=== PATIENT | male | born 1985 | race Caucasian/White ===

== ENCOUNTER 2019-02-04 07:52 | Observation (INO) | payer OTHER, SELFPAY ==
--- OUTSIDE RECORDS SUMMARY | 2019-02-04 08:06 | XMS REPORT ---
:1985 Author Organization eClinicalWorks Care Team Providers Name Role Phone Cory Webb Provider Role Unavailable Allergies, Adverse Reactions, Alerts Substance Reaction Event Type N.K.D.A. Info Not Available Non Drug Allergy Problems Problem Type Condition Code Onset Dates Condition Status Assessment Encounter for vaccination Z23 Active Assessment Testosterone deficiency E34.9 Active Problem Irritable bowel syndrome with K58.1 Active constipation Problem Sleep disturbance G47.9 Active Assessment Irritable bowel syndrome with K58.1 Active constipation Assessment Neck pain M54.2 Active Assessment Sleep disturbance G47.9 Active Assessment Tobacco abuse counseling Z71.6 Active Medications Medication Code Code Instructions Start End Status Dosage System Date Date Multi Vitamin ND 12340171468 - Orally Once a Active 1 tablet day Xifaxan [facility] 59484108223 550 MG Orally Dec 21, Active 1 tablet Twice a day 2017 Vitamin C ND 29958312549 500 MG Orally Active as directed [id number] ND 67149340353 1 MG Orally Active as directed Meloxicam ND 55627193545 7.5 MG Orally Active 1 tablet Once a day Vitamin E ND 58850584320 100 UNIT Orally Active 1 capsule Once a day Vitamin D ND 66391937827 1000 UNIT Orally Active 1 tablet Once a day Results No Known Results Immunizations Vaccine Administration Date TDAP > 7 Years-Adacel Dec 21, 2017 Summary Purpose eClinicalWorks Submission
--- OUTSIDE RECORDS SUMMARY | 2019-02-04 08:06 | XMS REPORT | Continuity of Care Document ---
:1985 Author Organization Smart Panel Care Team Providers Name Role Phone Smart Panel Unavailable Unavailable Problems Problem Status Onset Classification Date Comments Source Date Reported Unspecified 03/18/2018 [facility] disorder of 8 nose and nasal sinuses Backache Active Problem 03/18/2018 [facility] (finding) Hearing loss Active Problem 03/18/2018 [facility] (finding) Medications Medication Details Route Status Patient Ordering Order Source Instructions Provider Date Misc Medication 200 mL, Inactive [facility] Soln-IV, IV, 018 Once, first dose 03/16/18 12:41:00 CDT, stop date 03/16/18 12:41:00 CDT fentaNYL 25 mcg=0.5 Inactive [facility] mL, 018 Injection, IV, Once, first dose 03/16/18 12:36:00 CDT, stop date 03/16/18 12:36:00 CDT Misc Medication 1,000 mL, Inactive [facility] Soln-IV, IV, 018 Once, first dose 03/16/18 12:14:00 CDT, stop date 03/16/18 12:14:00 CDT fentaNYL 25 mcg=0.5 Inactive [facility] mL, 018 Injection, IV, Once, first dose 03/16/18 11:35:00 CDT, stop date 03/16/18 11:35:00 CDT fentaNYL 25 mcg=0.5 Inactive [facility] mL, 018 Injection, IV, Once, first dose 03/16/18 11:18:00 CDT, stop date 03/16/18 11:18:00 CDT fentaNYL 25 mcg=0.5 Inactive [facility] mL, 018 Injection, IV, Once, first dose 03/16/18 11:15:00 CDT, stop date 03/16/18 11:15:00 CDT fentaNYL 50 mcg=1 mL, Inactive [facility] Injection, 018 IV, Once, first dose 03/16/18 11:02:00 CDT, stop date 03/16/18 11:02:00 CDT Misc Medication 1,000 mL, Inactive [facility] Soln-IV, IV, 018 Once, first dose 03/16/18 10:51:00 CDT, stop date 03/16/18 10:51:00 CDT ondansetron 4 mg=2 mL, Inactive [facility] Injection, 018 IV, Once, first dose 03/16/18 10:45:00 CDT, stop date 03/16/18 10:45:00 CDT LR 1,000 mL 1,000 mL, Inactive [facility] IV, 75 018 mL/hr, start date 03/16/18 10:40:00 CDT Saline Lock Flush 10 mL, Soln, Inactive [facility] IV Push, As 018 Indicated PRN for flush, first dose 03/16/18 10:40:00 CDT Levalbuterol 0.21 0.63 mg=3 Inactive [facility] MG/ML Inhalant mL, Soln, 018 Solution NEB, Once [Xopenex] PRN for wheezing, first dose 03/16/18 10:40:00 CDT Diphenhydramine 25 mg=0.5 Inactive [facility] mL, 018 Injection, IV Push, Once PRN for itching, first dose 03/16/18 10:40:00 CDT Demerol HCl 12.5 mg=0.5 Inactive [facility] mL, 018 Injection, IV Push, Once PRN for shivers, first dose 03/16/18 10:40:00 CDT Dilaudid 0.5 mg=0.5 Inactive [facility] mL, 018 Injection, IV Push, q10min PRN for pain severe (7-10), first dose 03/16/18 10:40:00 CDT Ondansetron 4 mg=2 mL, Inactive [facility] Injection, 018 IV Push, q15min PRN for nausea, order duration: 2 doses, first dose 03/16/18 10:40:00 CDT, stop date Limited # of times acetaminophen 1,000 mg, Inactive [facility] Soln-IV, IV, 018 Once, first dose 03/16/18 10:35:00 CDT, stop date 03/16/18 10:35:00 CDT dexamethasone 12 mg=3 mL, Inactive [facility] Injection, 018 IV, Once, first dose 03/16/18 10:25:00 CDT, stop date 03/16/18 10:25:00 CDT lidocaine 4 mL, Inactive [facility] Injection, 018 IV, Once, first dose 03/16/18 10:22:00 CDT, stop date 03/16/18 10:22:00 CDT propofol 160 mg=16 Inactive [facility] mL, 018 Emulsion, IV, Once, first dose 03/16/18 10:22:00 CDT, stop date 03/16/18 10:22:00 CDT succinylcholine 140 mg=7 mL, Inactive [facility] Injection, 018 IV, Once, first dose 03/16/18 10:22:00 CDT, stop date 03/16/18 10:22:00 CDT fentaNYL 100 mcg=2 Inactive [facility] mL, 018 Injection, IV, Once, first dose 03/16/18 10:17:00 CDT, stop date 03/16/18 10:17:00 CDT midazolam 2 mg=2 mL, Inactive [facility] Injection, 018 IV, Once, first dose 03/16/18 10:17:00 CDT, stop date 03/16/18 10:17:00 CDT Lidocaine 2% 0.2 0.2 mL, Inactive [facility] mL IV Start Injection, 018 [[place]] Subcutaneous , Once PRN for other (see comment), first dose 03/16/18 6:32:00 CDT LR 1,000 mL 1,000 mL, Inactive [facility] IV, 30 018 mL/hr, start date 03/16/18 6:32:00 CDT Fish Oil Oral, 0 Active [facility] Refill(s), 018 supplement Vitamin E Oral, Daily, Active [facility] 0 Refill(s) 018 Vitamin D 1 tabs, Active [facility] chewable 5000 Oral, Daily, 018 units # 30 tabs, 0 Refill(s), supplement meloxicam Oral, Daily, No Longer [facility] 0 Refill(s), Active 018 back pain Allergies, Adverse Reactions, Alerts No Known Medication Allergies Immunizations No Data Provided for This Section Results No Data Provided for This Section Pathology Reports No Data Provided for This Section Diagnostic Reports No Data Provided for This Section Consultation Notes No Data Provided for This Section Discharge Summaries No Data Provided for This Section History and Physicals No Data Provided for This Section Vital Signs Vital Sign Value Date Comments Source Respitory Rate 16 03/16/2018 [facility] Peripheral Pulse Rate 75 03/16/2018 [facility] Temperature Oral (F) 37 Roxanne 03/16/2018 [facility] Systolic (mm Hg) 130 03/16/2018 [facility] Diastolic (mm Hg) 70 03/16/2018 [facility] Heart Rate 73 03/16/2018 [facility] Systolic (mm Hg) 124 03/16/2018 [facility] Diastolic (mm Hg) 83 03/16/2018 [facility] Respitory Rate 11 03/16/2018 [facility] Respitory Rate 10 03/16/2018 [facility] Heart Rate 73 03/16/2018 [facility] Systolic (mm Hg) 123 03/16/2018 [facility] Diastolic (mm Hg) 82 03/16/2018 [facility] Heart Rate 60 03/16/2018 [facility] Temperature Oral (F) 36.5 Roxanne 03/16/2018 [facility] Weight Measured 99 03/16/2018 [facility] Height 180.34 cm 03/16/2018 [facility] Peripheral Pulse Rate 62 03/16/2018 [facility] Temperature Oral (F) 37 Roxanne 03/16/2018 [facility] Weight Measured 99.79 03/15/2018 [facility] Height 180.34 cm 03/15/2018 [facility] Encounters Location Location Encounter Encounter Reason Attending ADM DC Status Source Details Type Number For Provider Date Date Visit [facility] Outpatient [id number] Ron 03/16 03/16 Active Sarahy Gibbs MD /[address] [facility] Outpatient [id number] Ron 03/16 03/16 [facility] Luke Gibbs MD [facility] Procedures Procedure Code Date Perfomer Comments Source ADENOIDECTOMY AGE 13 03/16/2018 auto-populated [facility] [place] OVER 34070 from documented (Other)<sup>1</sup> surgical case TYMPANOSTOMY-GENERAL 03/16/2018 auto-populated [facility] ANESTHESIA 69486 from documented (Bilateral)<sup>2</s surgical case up> Assessment and Plan No Data Provided for This Section Plan of Care No Data Provided for This Section Social History Social History Date Source Social History [facility] 03[facility] Smoking Status Current some day smoker1 1Pt reported quitting "every day" smoking 4 weeks ago but has had a cigarette on some days Family History No Data Provided for This Section Advance Directives No Data Provided for This Section Functional Status No Data Provided for This Section
--- OUTSIDE RECORDS SUMMARY | 2019-02-04 08:06 | XMS REPORT | Summary of Care ---
:1985 Author Organization [facility] Address [address] [place] [address] Encounter [facility] [id number] Date(s): 03/16/18 - 03/16/18 [facility] [address] [place] [address]- Discharge Diagnosis: Unspecified disorder of nose and nasal sinuses Discharge Disposition: Discharged to Home or Self Care Attending Physician: Ron Gibbs MD Admitting Physician: Ron Gibbs MD Vital Signs Most recent to oldest 1 2 3 [Reference Range]: Temperature Oral [35.8-37.3 37 DegC 37 DegC DegC] (03/16/18 2:36 PM) (03/16/18 6:37 AM) Temperature Tympanic 36.5 DegC [36.6-38.1 DegC] *LOW* (03/16/18 12:30 PM) Temperature Tympanic 97.7 Fahrenheit (03/16/18 12:30 PM) Peripheral Pulse Rate [55-105 75 bpm 62 bpm bpm] (03/16/18 2:36 PM) (03/16/18 6:37 AM) Heart Rate Monitored [60-100 73 bpm 73 bpm 60 bpm bpm] (03/16/18 1:30 PM) (03/16/18 1:20 PM) (03/16/18 1:10 PM) Respiratory Rate [12-20] 16 11 10 (03/16/18 2:36 PM) *LOW* *LOW* (03/16/18 1:30 PM) (03/16/18 1:20 PM) SpO2 [90-100 %] 97 % 96 % 97 % (03/16/18 2:36 PM) (03/16/18 1:30 PM) (03/16/18 1:20 PM) Blood Pressure [110-120/65-85 130/70 mmHg 124/83 mmHg 123/82 mmHg mmHg] *HI* *HI* *HI* (03/16/18 2:36 PM) (03/16/18 1:30 PM) (03/16/18 1:20 PM) Mean Arterial Pressure, Cuff 96.7 mmHg 95.7 mmHg 100.7 mmHg (03/16/18 1:30 PM) (03/16/18 1:20 PM) (03/16/18 1:10 PM) Height 180.34 cm 180.34 cm (03/16/18 6:37 AM) (03/15/18 8:15 AM) Height/Length Dosing 180.34 cm 180.34 cm (03/16/18 6:37 AM) (03/15/18 8:15 AM) Height Inches 71 in 71 in (03/16/18 6:37 AM) (03/15/18 8:15 AM) Weight 99 kg 99.79 kg (03/16/18 6:37 AM) (03/15/18 8:15 AM) Weight Dosing 99 kg 99.79 kg (03/16/18 6:37 AM) (03/15/18 8:15 AM) Weight Pounds 218 lb 220 lb (03/16/18 6:37 AM) (03/15/18 8:15 AM) Body Mass Index 30.44 kg/m2 30.68 kg/m2 (03/16/18 6:37 AM) (03/15/18 8:15 AM) Problem List Condition Effective Dates Status Health Status Informant Back pain(Confirmed) Active Hard of hearing(Confirmed) Active Allergies, Adverse Reactions, Alerts No Known Allergies Medications acetaminophen 1,000 mg, Soln-IV, IV, Once, first dose 03/16/18 10:35:00 CDT, stop date 10:35:00 CDT Start Date: 03/16/18 Stop Date: 03/16/18 Status: CompletedDemerol HCl 12.5 mg=0.5 mL, Injection, IV Push, Once PRN for shivers, first dose 03/16/18 10 :40:00 CDT Start Date: 03/16/18 Stop Date: 03/16/18 Status: Discontinueddexamethasone 12 mg=3 mL, Injection, IV, Once, first dose 03/16/18 10:25:00 CDT, stop date 07/02 10:25:00 CDT Start Date: 03/16/18 Stop Date: 03/16/18 Status: CompletedDilaudid 0.5 mg=0.5 mL, Injection, IV Push, q10min PRN for pain severe (7-10), first dose 03/16/18 10:40:00 CDT Start Date: 03/16/18 Stop Date: 03/16/18 Status: DiscontinueddiphenhydrAMINE 25 mg=0.5 mL, Injection, IV Push, Once PRN for itching, first dose 03/16/18 10: 40:00 CDT Start Date: 03/16/18 Stop Date: 03/16/18 Status: DiscontinuedfentaNYL 50 mcg=1 mL, Injection, IV, Once, first dose 03/16/18 11:02:00 CDT, stop date 11:02:00 CDT Start Date: 03/16/18 Stop Date: 03/16/18 Status: CompletedfentaNYL 100 mcg=2 mL, Injection, IV, Once, first dose 03/16/18 10:17:00 CDT, stop date 03/16/18 10:17:00 CDT Start Date: 03/16/18 Stop Date: 03/16/18 Status: CompletedfentaNYL 25 mcg=0.5 mL, Injection, IV, Once, first dose 03/16/18 12:36:00 CDT, stop date 03/16/18 12:36:00 CDT Start Date: 03/16/18 Stop Date: 03/16/18 Status: CompletedfentaNYL 25 mcg=0.5 mL, Injection, IV, Once, first dose 03/16/18 11:15:00 CDT, stop date 03/16/18 11:15:00 CDT Start Date: 03/16/18 Stop Date: 03/16/18 Status: CompletedfentaNYL 25 mcg=0.5 mL, Injection, IV, Once, first dose 03/16/18 11:35:00 CDT, stop date 03/16/18 11:35:00 CDT Start Date: 03/16/18 Stop Date: 03/16/18 Status: CompletedfentaNYL 25 mcg=0.5 mL, Injection, IV, Once, first dose 03/16/18 11:18:00 CDT, stop date 03/16/18 11:18:00 CDT Start Date: 03/16/18 Stop Date: 03/16/18 Status: CompletedFish Oil Oral, 0 Refill(s), supplement Start Date: 03/15/18 Stop Date: 03/29/18 Status: Orderedlidocaine 4 mL, Injection, IV, Once, first dose 03/16/18 10:22:00 CDT, stop date 03/16/18 10:22:00 CDT Start Date: 03/16/18 Stop Date: 03/16/18 Status: CompletedLidocaine 2% 0.2 mL IV Start [[place]] 0.2 mL, Injection, Subcutaneous, Once PRN for other (see comment), first dose 6:32:00 CDT Start Date: 03/16/18 Stop Date: 03/16/18 Status: DiscontinuedLR 1,000 mL 1,000 mL, IV, 75 mL/hr, start date 03/16/18 10:40:00 CDT Start Date: 03/16/18 Stop Date: 03/16/18 Status: DiscontinuedLR 1,000 mL 1,000 mL, IV, 30 mL/hr, start date 03/16/18 6:32:00 CDT Start Date: 03/16/18 Stop Date: 03/16/18 Status: Discontinuedmeloxicam Oral, Daily, 0 Refill(s), back pain Start Date: 03/15/18 Stop Date: 03/16/18 Status: Discontinuedmidazolam 2 mg=2 mL, Injection, IV, Once, first dose 03/16/18 10:17:00 CDT, stop date 07/02 10:17:00 CDT Start Date: 03/16/18 Stop Date: 03/16/18 Status: CompletedMisc Medication 1,000 mL, Soln-IV, IV, Once, first dose 03/16/18 12:14:00 CDT, stop date 12:14:00 CDT Start Date: 03/16/18 Stop Date: 03/16/18 Status: CompletedMisc Medication 200 mL, Soln-IV, IV, Once, first dose 03/16/18 12:41:00 CDT, stop date 03/16/18 12:41:00 CDT Start Date: 03/16/18 Stop Date: 03/16/18 Status: CompletedMisc Medication 1,000 mL, Soln-IV, IV, Once, first dose 03/16/18 10:51:00 CDT, stop date 10:51:00 CDT Start Date: 03/16/18 Stop Date: 03/16/18 Status: Completedondansetron 4 mg=2 mL, Injection, IV Push, q15min PRN for nausea, order duration: 2 doses, first dose 03/16/18 10:40:00 CDT, stop date Limited # of times Start Date: 03/16/18 Stop Date: 03/16/18 Status: Discontinuedondansetron 4 mg=2 mL, Injection, IV, Once, first dose 03/16/18 10:45:00 CDT, stop date 07/02 10:45:00 CDT Start Date: 03/16/18 Stop Date: 03/16/18 Status: Completedpropofol 160 mg=16 mL, Emulsion, IV, Once, first dose 03/16/18 10:22:00 CDT, stop date 10:22:00 CDT Start Date: 03/16/18 Stop Date: 03/16/18 Status: CompletedSaline Lock Flush 10 mL, Soln, IV Push, As Indicated PRN for flush, first dose 03/16/18 10:40:00 CDT Start Date: 03/16/18 Stop Date: 03/16/18 Status: Discontinuedsuccinylcholine 140 mg=7 mL, Injection, IV, Once, first dose 03/16/18 10:22:00 CDT, stop date 10:22:00 CDT Start Date: 03/16/18 Stop Date: 03/16/18 Status: CompletedVitamin D chewable 5000 units 1 tabs, Oral, Daily, # 30 tabs, 0 Refill(s), supplement Start Date: 03/15/18 Stop Date: 03/29/18 Status: Orderedvitamin E Oral, Daily, 0 Refill(s) Start Date: 03/15/18 Stop Date: 03/29/18 Status: OrderedXopenex 0.63 mg/3 mL inhalation solution 0.63 mg=3 mL, Soln, NEB, Once PRN for wheezing, first dose 03/16/18 10:40:00 CDT Start Date: 03/16/18 Stop Date: 03/16/18 Status: Discontinued Results No data available for this section Immunizations No data available for this section Procedures Procedure Date Related Diagnosis Body Site ADENOIDECTOMY AGE 13 OR OVER 29256 (Other)1 03/16/18 TYMPANOSTOMY-GENERAL ANESTHESIA 60352 03/16/18 (Bilateral)2 None 1auto-populated from documented surgical [id number] from documented surgical case Social History Social History Type Response Smoking Status Current some day smoker1 1Pt reported quitting "every day" smoking 4 weeks ago but has had a cigarette on some days Assessment and Plan No data available for this section
[2019-02-04] MEDS ORDERED: MORPHINE 4 MG/ML SYR ONE (08:17)
[2019-02-04] MEDS ORDERED: NA CHLORIDE 0.9% 1,000 ML ONE ×2 (08:17→08:54)
[2019-02-04] MEDS ORDERED: ONDANSETRON 4 MG/2 ML VIAL ONE (08:17)
[2019-02-04] MEDS ORDERED: FAMOTIDINE 20 MG/2 ML VIAL IV ONE (08:32)
[2019-02-04 08:40] LABS: Albumin 4.1 g/dL (3.4-5.0); Bilirubin Direct 0.1 mg/dL (0-0.2); Bilirubin Total 0.5 mg/dL (0.2-1.0); Potassium 3.7 mmol/L (3.5-5.1); Protein, Total 7.5 g/dL (6.4-8.2)
[2019-02-04 08:43] LABS: Absolute Lymphocytes (CBC) 2.2 K/uL (0.7-4.9); Basophils % 0.7 % (0-1.3); Hematocrit 47.4 % (39.6-49.0); Lymphocytes % 22.5 % (15.3-44.8); MPV 10.3 fL (7.6-11.3); RBC Red Blood Cell Count 5.52 M/uL (4.33-5.43)
[2019-02-04] MEDS ORDERED: PIPER/TAZO/NS 3.375gm 3.375 GM/100 ML BAG IV ONE (08:45)
--- NOTE | 2019-02-04 08:50 | RAD REPORT ---
EXAM DESCRIPTION: RAD - Chest Single View - 02/04/2019 8:33 am CLINICAL HISTORY: Cough;Abdominal distention Chest pain. COMPARISON: No comparisons FINDINGS: Portable technique limits examination quality. The lungs are grossly clear. The heart is normal in size. No displaced fractures. IMPRESSION: No acute intrathoracic process suspected.
--- NOTE | 2019-02-04 09:22 | RAD REPORT ---
EXAM DESCRIPTION: US - Abdomen Exam Limited - 02/04/2019 8:43 am CLINICAL HISTORY: ABD PAIN COMPARISON: No comparisons FINDINGS: The gallbladder demonstrates no gallstones. No pericholecystic fluid or gallbladder wall t hickening. The common bile duct is normal measuring 3 mm. The liver demonstrates no findings of intrahepatic biliary dilatation. IMPRESSION: Unremarkable examination.
--- NOTE | 2019-02-04 09:52 | RAD REPORT ---
EXAM DESCRIPTION: CTAbdomen Pelvis W Contrast - 02/04/2019 9:07 am CLINICAL HISTORY: Abdominal pain. ABD PAIN COMPARISON: No comparisons TECHNIQUE: Biphasic CT imaging of the abdomen and pelvis was performed with 100 ml non-ionic IV cont rast. All CT scans are performed using dose optimization technique as appropriate and may include automated exposure control or mA/KV adjustment according to patient size. FINDINGS: The lung bases are clear. The liver, spleen, pancreas, adrenal glands and kidneys are within normal limits. Punctate calculus i nferior left kidney is seen without hydronephrosis. No bowel obstruction, free air, free fluid or abscess. The appendix is mildly thickened and dilated to 9-10 mm with trace surrounding inflammation in the adjacent fat. Early acute appendicitis is suspe cted. No evidence of significant lymphadenopathy. No suspicious bony findings. IMPRESSION: Early acute appendicitis is suspected.
--- NOTE | 2019-02-04 09:54 | ER ---
Nurse's Notes [facility] Name: Cipriano Sparks Age: 33 yrs Sex: Male : 1985 Arrival Date: 02/04/2019 Time: 07:53 Bed 6 Private MD: Diagnosis: Acute appendicitis Presentation: 02/04 08:04 Presenting complaint: Lower abdominal pain x 3 days. Pain began in lower abdomen, now hb has RUQ pain 10/10. Denies N/V/D/fever. Transition of care: patient was not received from another setting of care. Onset of symptoms was February 02, 2019. Risk Assessment: Do you want to hurt yourself or someone else? Patient reports no desire to harm self or others. Initial Sepsis Screen: Does the patient meet any 2 criteria? No. Patient's initial sepsis screen is negative. Does the patient have a suspected source of infection? No. Patient's initial sepsis screen is negative. Care prior to arrival: None. 08:04 Method Of Arrival: Ambulatory hb 08:04 Acuity: ANABELLE 3 hb Historical: - Allergies: 08:06 No Known Allergies; hb - Home Meds: 08:06 None [Active]; hb - PMHx: 08:06 None; hb - PSHx: 08:06 Ear Tubes; hb - Immunization history:: Adult Immunizations up to date. - Social history:: Smoking status: Patient/guardian denies using tobacco. - Ebola Screening: : No symptoms or risks identified at this time. - Family history:: not pertinent. Screenin:10 Abuse screen: Denies threats or abuse. Denies injuries from another. Nutritional sg screening: No deficits noted. Tuberculosis screening: No symptoms or risk factors identified. Never had TB. Fall Risk None identified. Assessment: 08:10 General: Appears in no apparent distress. well groomed, well developed, well nourished, sg Behavior is calm, cooperative, appropriate for age. Pain: Complains of pain in left lower quadrant and right lower quadrant Quality of pain is described as aching. Neuro: Level of Consciousness is awake, alert, obeys commands, Oriented to person, place, time, situation, Health Information Director are equal bilaterally Moves all extremities. Gait is steady, Speech is normal, Facial symmetry appears normal, Pupils are PERRLA. Cardiovascular: Capillary refill is brisk in bilateral fingers Patient's skin is warm and dry. Chest pain is denied. Respiratory: Airway is patent Respiratory effort is even, unlabored, Respiratory pattern is regular, symmetrical, Breath sounds are clear. GI: Abdomen is round non-distended, Bowel sounds present X 4 quads. Abd is soft X 4 quads Abdomen is tender to palpation in right lower quadrant and left lower quadrant Guarding noted. : No signs and/or symptoms were reported regarding the genitourinary system. EENT: No signs and/or symptoms were reported regarding the EENT system. Derm: Skin is pink, warm \T\ dry. Musculoskeletal: Circulation, motion, and sensation intact. Range of motion: intact in all extremities. 08:37 Reassessment: pt remains off the unit in ultrasound at this time. sg 08:44 Reassessment: pt returned from [facility], in bed, HOB repositioned for comfort, pt sg reports feeling better after repositioning, lights off as requested, awaiting labs prior to CT scan. 09:08 Reassessment: Patient appears in no apparent distress at this time. pt in CT scan at this time. 10:15 Reassessment: Patient appears in no apparent distress at this time. Patient and/or sg family updated on plan of care and expected duration. Pain level reassessed. Patient states feeling better. 11:30 Reassessment: Patient appears in no apparent distress at this time. Patient and/or sg family updated on plan of care and expected duration. Pain level reassessed. awaiting admission to the OR/Hospital at this time. 12:03 Reassessment: Patient appears in no apparent distress at this time. Patient and/or sg family updated on plan of care and expected duration. Pain level reassessed. awaiting a bed assignment, awaiting evaluation by , pt and pt family stated understanding, no new orders received at this time, will continue to monitor. Vital Signs: 08:06 BP 147 / 87; Pulse 74; Resp 16; Temp 98.4; Pulse Ox 100% ; Weight 99.79 kg; Height 6 hb ft. (182.88 cm); Pain 10/10; 12:30 BP 126 / 83; Pulse 62; Resp 14; Temp 98.2; Pulse Ox 99% on R/A; Pain 6/10; sg 08:06 Body Mass Index 29.84 (99.79 kg, 182.88 cm) hb ED Course: 07:53 Patient arrived in ED. rg4 08:00 Chris Jha MD is Attending Physician. rashad 08:05 Triage completed. hb 08:06 Arm band placed on. hb 08:08 Denzel Nevarez, RN is Primary Nurse. sg 08:10 Patient has correct armband on for positive identification. Bed in low position. Call sg light in reach. Side rails up X2. Pulse ox on. NIBP on. 08:11 Initial lab(s) drawn, by me, sent to lab. Inserted saline lock: 20 gauge in right sg antecubital area, using aseptic technique. Blood collected. 08:35 Chest Single View XRAY In Process Unspecified. EDMS 08:44 Awaiting lab results, Awaiting CT Scan. sg 08:45 US Abdomen Limited In Process Unspecified. EDMS 09:13 CT Abd/Pelvis - IV Contrast Only In Process Unspecified. EDMS 09:50 Chris Jha MD is Hospitalizing Provider. rashad 09:51 Emmett Parks MD is Hospitalizing Provider. rashad 12:30 No provider procedures requiring assistance completed. Patient admitted, IV remains in sg place. intact. Administered Medications: 08:20 Drug: morphine 4 mg {Note: RASS +1.} Route: IVP; Site: right antecubital; sg 08:20 Drug: Zofran 4 mg Route: IVP; Site: right antecubital; sg 08:20 Drug: NS 0.9% 1000 ml Route: IV; Rate: 1 bolus; Site: right antecubital; sg 09:45 Follow up: Response: No adverse reaction; IV Status: Completed infusion; IV Intake: jl7 1000ml 08:43 Drug: Pepcid 20 mg Route: IVP; Site: right antecubital; sg 09:59 Drug: Zosyn 3.375 grams Route: IVPB; Infused Over: 60 mins; Site: right antecubital; sg 11:00 Follow up: Response: No adverse reaction; IV Status: Completed infusion jl7 10:06 Drug: NS 0.9% 1000 ml Route: IV; Rate: 1 bolus; Site: right antecubital; jl7 12:00 Follow up: Response: No adverse reaction; IV Status: Completed infusion; IV Intake: sg 1000ml Intake: 09:45 IV: 1000ml; Total: 1000ml. jl7 12:00 IV: 1000ml; Total: 2000ml. sg Outcome: 09:51 Decision to Hospitalize by Provider. rashad 12:30 Admitted to OR accompanied by nurse, family with patient, via wheelchair, with chart, sg Report called to bedside report given 12:30 Condition: stable 12:30 Instructed on follow up and referral plans. the need for admit, safety practices, Demonstrated understanding of instructions. 12:38 Patient left the ED. sg Signatures: Dispatcher [employer] EDMS Denzel Nevarez, RN RN Chris Bailey MD MD cha Baxter, Heather, RN Martha Patton rg4 Bryan De La Fuente RN RN jl7
--- NOTE | 2019-02-04 09:55 | EDPHYS ---
Physician Documentation [facility] Name: Cipriano Sparks Age: 33 yrs Sex: Male : 1985 Arrival Date: 02/04/2019 Time: 07:53 Bed 6 Private MD: ED Physician Chris Jha HPI: 02/04 08:19 This 33 yrs old Male presents to ER via Ambulatory with complaints of rashad Abdominal Pain. 08:19 The patient presents with abdominal pain in the upper abdomen, in the lower abdomen, in rashad the right upper quadrant, right lower quadrant, abdominal distention in the upper abdomen, in the lower abdomen. Onset: The symptoms/episode began/occurred 3 day(s) ago. The symptoms do not radiate. Associated signs and symptoms: none. The symptoms are described as crampy, dull. Modifying factors: The symptoms are alleviated by nothing, remaining still, the symptoms are aggravated by movement. Severity of pain: At its worst the pain was moderate in the emergency department the pain is unchanged. The patient has not experienced similar symptoms in the past. Historical: - Allergies: 08:06 No Known Allergies; hb - Home Meds: 08:06 None [Active]; hb - PMHx: 08:06 None; hb - PSHx: 08:06 Ear Tubes; hb - Immunization history:: Adult Immunizations up to date. - Social history:: Smoking status: Patient/guardian denies using tobacco. - Ebola Screening: : No symptoms or risks identified at this time. - Family history:: not pertinent. ROS: 08:19 Constitutional: Negative for fever, chills, and weight loss, Eyes: Negative for injury, rashad pain, redness, and discharge, ENT: Negative for injury, pain, and discharge, Neck: Negative for injury, pain, and swelling, Cardiovascular: Negative for chest pain, palpitations, and edema, Respiratory: Negative for shortness of breath, cough, wheezing, and pleuritic chest pain, Back: Negative for injury and pain, : Negative for injury, bleeding, discharge, and swelling, MS/Extremity: Negative for injury and deformity, Skin: Negative for injury, rash, and discoloration, Neuro: Negative for headache, weakness, numbness, tingling, and seizure, Psych: Negative for depression, anxiety, suicide ideation, homicidal ideation, and hallucinations, Allergy/Immunology: Negative for hives, rash, and allergies, Endocrine: Negative for neck swelling, polydipsia, polyuria, polyphagia, and marked weight changes, Hematologic/Lymphatic: Negative for swollen nodes, abnormal bleeding, and unusual bruising. 08:19 Abdomen/GI: Positive for abdominal pain, of the right upper quadrant, left upper quadrant, right lower quadrant and left lower quadrant. Exam: 08:19 Constitutional: This is a well developed, well nourished patient who is awake, alert, rashad and in no acute distress. Head/Face: Normocephalic, atraumatic. Eyes: Pupils equal round and reactive to light, extra-ocular motions intact. Lids and lashes normal. Conjunctiva and sclera are non-icteric and not injected. Cornea within normal limits. Periorbital areas with no swelling, redness, or edema. ENT: Nares patent. No nasal discharge, no septal abnormalities noted. Tympanic membranes are normal and external auditory canals are clear. Oropharynx with no redness, swelling, or masses, exudates, or evidence of obstruction, uvula midline. Mucous membranes moist. Neck: Trachea midline, no thyromegaly or masses palpated, and no cervical lymphadenopathy. Supple, full range of motion without nuchal rigidity, or vertebral point tenderness. No Meningismus. Chest/axilla: Normal chest wall appearance and motion. Nontender with no deformity. No lesions are appreciated. Cardiovascular: Regular rate and rhythm with a normal S1 and S2. No gallops, murmurs, or rubs. Normal PMI, no JVD. No pulse deficits. Respiratory: Lungs have equal breath sounds bilaterally, clear to auscultation and percussion. No rales, rhonchi or wheezes noted. No increased work of breathing, no retractions or nasal flaring. Back: No spinal tenderness. No costovertebral tenderness. Full range of motion. Male : Normal genitalia with no discharge or lesions. Skin: Warm, dry with normal turgor. Normal color with no rashes, no lesions, and no evidence of cellulitis. MS/ Extremity: Pulses equal, no cyanosis. Neurovascular intact. Full, normal range of motion. Neuro: Awake and alert, GCS 15, oriented to person, place, time, and situation. Cranial nerves II-XII grossly intact. Motor strength 5/5 in all extremities. Sensory grossly intact. Cerebellar exam normal. Normal gait. Psych: Awake, alert, with orientation to person, place and time. Behavior, mood, and affect are within normal limits. 08:19 Abdomen/GI: Inspection: abdomen appears normal, Bowel sounds: diminished, Palpation: moderate abdominal tenderness, involuntary guarding, is elicited in all quadrants, Liver: no appreciated palpable abnormalities, Hernia: not appreciated. Vital Signs: 08:06 BP 147 / 87; Pulse 74; Resp 16; Temp 98.4; Pulse Ox 100% ; Weight 99.79 kg; Height 6 hb ft. (182.88 cm); Pain 10/10; 12:30 BP 126 / 83; Pulse 62; Resp 14; Temp 98.2; Pulse Ox 99% on R/A; Pain 6/10; sg 08:06 Body Mass Index 29.84 (99.79 kg, 182.88 cm) hb MDM: 08:00 Patient medically screened. [facility] 08:21 Data reviewed: vital signs, nurses notes, lab test result(s), radiologic studies, CT [facility] scan, plain films, ultrasound. 02/04 08:08 Order name: Basic Metabolic Panel; Complete Time: 08:50 02/04 08:08 Order name: CBC with Diff; Complete Time: 08:50 02/04 08:08 Order name: Creatinine for Radiology; Complete Time: 08:50 02/04 08:08 Order name: Hepatic Function; Complete Time: 08:50 02/04 08:08 Order name: Lipase; Complete Time: 08:50 02/04 10:24 Order name: Urine Dipstick--Ancillary (enter results) 02/04 08:18 Order name: Chest Single View XRAY; Complete Time: 10:54 [facility] 02/04 08:18 Order name: CT Abd/Pelvis - IV Contrast Only [facility] 02/04 08:18 Order name: US Abdomen Limited; Complete Time: 10:54 [facility] 02/04 10:52 Order name: Urine Dipstick-Ancillary; Complete Time: 10:54 EDMS 02/04 08:08 Order name: IV Saline Lock; Complete Time: 08:08 02/04 08:08 Order name: Labs collected and sent; Complete Time: 08:08 02/04 10:02 Order name: NPO; Complete Time: 10:03 02/04 10:54 Order name: NPO; Complete Time: 11:18 rashad Administered Medications: 08:20 Drug: morphine 4 mg {Note: RASS +1.} Route: IVP; Site: right antecubital; sg 08:20 Drug: Zofran 4 mg Route: IVP; Site: right antecubital; sg 08:20 Drug: NS 0.9% 1000 ml Route: IV; Rate: 1 bolus; Site: right antecubital; sg 09:45 Follow up: Response: No adverse reaction; IV Status: Completed infusion; IV Intake: jl7 1000ml 08:43 Drug: Pepcid 20 mg Route: IVP; Site: right antecubital; sg 09:59 Drug: Zosyn 3.375 grams Route: IVPB; Infused Over: 60 mins; Site: right antecubital; 11:00 Follow up: Response: No adverse reaction; IV Status: Completed infusion jl7 10:06 Drug: NS 0.9% 1000 ml Route: IV; Rate: 1 bolus; Site: right antecubital; jl7 12:00 Follow up: Response: No adverse reaction; IV Status: Completed infusion; IV Intake: sg 1000ml Disposition: 02/04/19 09:51 Hospitalization ordered by Emmett Parks for Observation. Preliminary diagnosis is Acute appendicitis. - Bed requested for Telemetry/MedSurg (observation). - Status is Observation. sg - Condition is Stable. - Problem is new. - Symptoms have improved. UTI on Admission? No Signatures: Dispatcher [employer] EDDenzel Bell RN RN sg Anderson, Corey, MD MD cha Baxter, Heather, RN RN Bryan De La Fuente RN RN jl7 Corrections: (The following items were deleted from the chart) 12:38 09:51 Hospitalization Ordered by Emmett Parks MD for Observation. Preliminary sg diagnosis is Acute appendicitis. Bed requested for Telemetry/MedSurg (observation). Status is Observation. Condition is Stable. Problem is new. Symptoms have improved. UTI on Admission? No. rashad
[2019-02-04] MEDS ORDERED: PIPER/TAZO/NS 3.375gm 3.375 GM/100 ML BAG ONE (09:56)
[2019-02-04 10:52] LABS: Urine Blood NEGATIVE (NEG); Urine Glucose NEGATIVE (NEG); Urine Protein NEGATIVE (NEG); Urine Specific Gravity 1.015 (1.005-1.030); Urine pH 7.5 (5.0-7.0)
[2019-02-04] MEDS ORDERED: PROPOFOL 200 MG/20 ML VIAL IV ONE (12:22)
[2019-02-04] MEDS ORDERED: MIDAZOLAM HCL 2 MG/2 ML INJ ONE (12:22)
[2019-02-04] MEDS ORDERED: LIDOCAINE 1% MPF 5 ML VIAL ONE (12:23)
[2019-02-04] MEDS ORDERED: ROCURONIUM 50 MG/5 ML VIAL IV ONE (12:23)
[2019-02-04] MEDS ORDERED: FENTANYL CITR 100 MCG/2 ML ONE (12:23)
[2019-02-04] MEDS ORDERED: Ringers Lactate 1,000 ML IV ONE ×2 (12:44→15:22)
[2019-02-04] MEDS ORDERED: PROMETHAZINE 25 MG/ML VIAL ONE (13:32)
[2019-02-04] MEDS ORDERED: MEPERIDINE HCL 25 MG/0.5 ML ONE (13:33)
[2019-02-04] MEDS ORDERED: GLYCOPYRROLATE 0.2 MG/ML SYR ONE ×2 (14:30)
[2019-02-04] MEDS ORDERED: NEOSTIGMINE 1 MG/ML -10 ML VIAL ONE (14:38)
[2019-02-04] MEDS ORDERED: MORPHINE 10 MG/ML VIAL ONE (15:05)
[2019-02-04] MEDS ORDERED: KETOROLAC 30 MG/ML INJ ONE (15:06)
[2019-02-04] MEDS ORDERED: ACETAMINOPHEN 325 MG TABLET PO PRN (15:56)
[2019-02-04] MEDS ORDERED: HYDROCODONE/APAP 7.5/325 MG TAB PO PRN (15:56)
[2019-02-04] MEDS ORDERED: ONDANSETRON 4 MG/2 ML VIAL IV PRN (15:56)
[2019-02-04] MEDS ORDERED: HYDROMORPHONE HCL 1 MG/ML INJ ONE (16:04)
[2019-02-04] MEDS: D5 0.45 NS 1,000 ML IV SCH ×2 (16:26→23:56)
--- NOTE | 2019-02-04 16:41 | P.OP ---
Preoperative diagnosis: Acute abdomen with appendicitis Postoperative diagnosis: The same Primary procedure: Laparoscopic appendectomy Anesthesia: General Estimated blood loss: Less than 10 cc Specimen: 1 appendix Operative Technique: The patient brought the operating room and placed supine on the table. After the induction of adequate general endotracheal anesthesia, the area of the abdomen was prepped with a DuraPrep solution, and he was draped in usual aseptic manner. Subumbilical incision was made. This brought down through the skin and subcutaneous tissue. The Visiport was used to enter the peritoneal cavity and created pneumoperitoneum to approximately 12 mm of mercury. Under direct vision a 5 mm trocars placed in the upper right abdomen, and another in the lower midline. The patient was then placed in Trendelenburg after insufflating the peritoneal cavity to 12 L of Hg. The bed was also a rolled to the left. This gave good visualization of the right lower quadrant. We could see distended and mildly inflamed appendix in the right lower quadrant. The were noted to be adhesions of this to the anterior abdominal wall. These adhesions were gently taken down using blunt sharp dissection. The base of the appendix at its junction with the cecum was identified. A window was made in the mesentery of the appendix. Having converted to a 5 mm camera in the upper midline and our 10 mm to a 12 with the emboli kiss we were now able to introduce the linear Stapler. This is placed across the base the appendix and fired. A vascular reload was used to take down the mesentery of the appendix. The specimen had now been detached. It was placed into an Endo-Catch and brought out through the umbilical trocar site. The abdomen is inspected to ensure adequate hemostasis. At TA PP block was done in the right upper portion of the abdomen. The umbilical trocar site was now approximated using the Endo Close in 2 sutures placed of absorbable material. The pneumoperitoneum was collapsed, the trocars removed, and the sutures tied. Hurley were then applied to the skin. At the end of the procedure he was stable when sent to the recovery room. Needle sponge instrument count were correct. No drains were placed. Complications: None Transferred to: Recovery Room Condition: Good
--- NOTE | 2019-02-04 16:43 | P.HP ---
Date of Service: 02/04/19 PC: This 33-year-old male presents emergency room with severe right lower quadrant abdominal pain for diagnosis and treatment. HPC: Patient has been experiencing some right lower part full abdominal pain. Has located to the right lower quadrant. Also appears to be slightly in the right upper portion of his abdomen as well. PMH: Negative PSHx: Denies any prior surgeries SOC: No known allergies SYS REVIEW: Cough, wheeze, shortness of breath. No chest pain or palpitations. No urinary complaints O/E awake alert vital signs are stable HEENT: Within normal limits Chest: Clear ABD: With mild guarding in the right lower quadrant as well as read LOCO: Intact DATA: CT scan reviewed IMPRESSION: Acute abdomen with his appendicitis PLAN: I will take him to the operating room for laparoscopic possible open appendectomy. The risks of this procedure have been discussed. The possibility of bleeding, infection, injury to bowel blood vessels and nerves was explained the possible need for an open and/or further surgeries and procedures was discussed. He understands and wants us to proceed.
[2019-02-04 16:47] VITALS: BMI 31.8
[2019-02-04] MEDS: MORPHINE 4 MG/ML SYR IV PRN ×2 (17:30→23:50)
[2019-02-04] MEDS: PIPER/TAZO/NS 3.375gm 3.375 GM/100 ML BAG IVPB SCH (18:04)
[2019-02-04] MEDS: FAMOTIDINE 20 MG/2 ML VIAL IV SCH (21:38)
[2019-02-04 23:36] VITALS: O2SAT 97
[2019-02-05] MEDS: PIPER/TAZO/NS 3.375gm 3.375 GM/100 ML BAG IVPB SCH ×2 (00:42→08:19)
[2019-02-05] MEDS: MORPHINE 4 MG/ML SYR IV PRN ×3 (04:15→10:44)
[2019-02-05 06:17] LABS: Absolute Lymphocytes (CBC) 2.1 K/uL (0.7-4.9); Basophils % 0.5 % (0-1.3); Hematocrit 40.9 % (39.6-49.0); Lymphocytes % 21.5 % (15.3-44.8); MPV 10.9 fL (7.6-11.3); RBC Red Blood Cell Count 4.73 M/uL (4.33-5.43)
[2019-02-05 06:33] LABS: Albumin 3.3 g/dL (3.4-5.0); Bilirubin Direct 0.2 mg/dL (0-0.2); Bilirubin Total 0.9 mg/dL (0.2-1.0); Potassium 4.1 mmol/L (3.5-5.1); Protein, Total 6.2 g/dL (6.4-8.2)
[2019-02-05] MEDS: FAMOTIDINE 20 MG/2 ML VIAL IV SCH (08:19)
[2019-02-05] MEDS: D5 0.45 NS 1,000 ML IV SCH (08:34)
--- NOTE | 2019-02-05 12:08 | P.PN ---
Date of Service: 02/05/19 S: Patient is states is abdominal pain is gone but he is complaining of pain in the right upper quadrant. O: Abdomen is soft, nontender, patient is up ambulating looks well. Asking for food A: Surgically stable P: Patient is well status post laparoscopic appendectomy. He is still complaining of some right upper quadrant discomfort. His ultrasound and CT scan were negative and a chest x-ray revealed no pathology that area as well. His labs were within normal limits. If need be he may need require a HIDA scan as an outpatient, but his acute problem has been dealt with. I will discuss this with him and anticipate discharge.
[2019-02-05 14:12] VITALS: BP 116/62; TEMP 98.3
== END 2019-02-05 14:35 | disposition home or self-care (01) ==
LOC: ER 07:52 → ERHOLD 09:55 → 2ND 16:02
PROVIDERS: ADMIT Surgery; ATTEND Surgery
PROC: 0DTJ4ZZ Resection of Appendix, Percutaneous Endoscopic Approach (ICD-10-PCS; principal; 2019-02-04 12:00)
DX: K35.80 Unspecified acute appendicitis (principal)
CPT/HCPCS: 36415; 71045; 74177; 76705; 80048; 80076; 81003; 83690; 85025; 88304; 96361; 96365; 96375; 99285; G0378; J1170; J2175; J2250; J2405; J2543; J2550; J2704; J2710; J3010; J7030; Q9967

== ENCOUNTER 2024-06-25 04:30 | Emergency (ER) | payer OTHER ==
[2024-06-25] MEDS ORDERED: ONDANSETRON 4 MG/2 ML VIAL ONE (05:11)
[2024-06-25] MEDS ORDERED: MORPHINE 4 MG/ML SYR ONE (05:11)
[2024-06-25] MEDS ORDERED: KETOROLAC 30 MG/ML INJ ONE (05:11)
[2024-06-25 05:17] LABS: Absolute Eosinophils 0.1 K/uL (0-0.5); Absolute Lymphocytes (CBC) 0.6 K/uL (0.7-4.9); Absolute Monocytes 0.6 K/uL (0.1-1.3); Absolute Neutrophil 7.7 K/uL (1.8-8.0); Basophils % 0.3 % (0-1.3); Eosinophils % 0.9 % (0-4.4); Hemoglobin 13.9 g/dL (13.6-17.9); Lymphocytes % 6.9 % (15.3-44.8); MCH 28.4 pg (27.0-35.0); MCV 83.4 fL (80-100); MPV 9.2 fL (7.6-11.3); Monocytes % 6.7 % (3.3-12.3); Neutrophils % 85.2 % (41.7-73.7); Platelets 175 thou/uL (152-406); RBC Red Blood Cell Count 4.92 M/uL (4.33-5.43); Red Cell Distribution Width 13.4 % (12.1-15.2)
[2024-06-25 05:28] LABS: Albumin 3.9 g/dL (3.4-5.0); Albumin/Globulin Ratio 1.2 (1.1-1.8); Anion Gap 6.6 mEq/L (5.0-15.0); Bilirubin Total 0.4 mg/dL (0.2-1.0); Globulin 3.2 g/dL (2.3-3.5); Potassium 3.6 mEq/L (3.5-5.1); Protein, Total 7.1 g/dL (6.4-8.2)
[2024-06-25] MEDS ORDERED: FENTANYL CITR 100 MCG/2 ML ONE (06:13)
[2024-06-25 06:15] LABS: Renal Epithelial <5 /HPF (None Seen); Specific Gravity 1.025 (1.005-1.030); Sqamous Epithelial None Seen /HPF (None Seen); Urine Bacteria None Seen /HPF (<20); Urine Bilirubin NEGATIVE (Negative); Urine Blood 2+ (Negative); Urine Clarity Clear (Clear); Urine Color Light-Yellow (Yellow); Urine Culture Reflex Order NOT NEEDED; Urine Glucose NEGATIVE (Negative); Urine Ketones NEGATIVE (Negative); Urine Micro Reflex YN NO BILL MICROSCOPIC; Urine Mucus Slight /HPF (None Seen); Urine Nitrite NEGATIVE (Negative); Urine Protein TRACE (Negative); Urine RBC >50 /HPF (None Seen); Urine Urobilinogen Normal (Normal); Urine WBC <5 /HPF (<5)
[2024-06-25 06:17] LABS: Barbiturates NEGATIVE (NEGATIVE); Benzodiazepines NEGATIVE (NEGATIVE); Cocaine NEGATIVE (NEGATIVE); METHAMPHETAM NEGATIVE (NEGATIVE); Methadone NEGATIVE (NEGATIVE); Opiates POSITIVE (NEGATIVE); Phencyclidine NEGATIVE (NEGATIVE); THC Cannibis NEGATIVE (NEGATIVE)
--- NOTE | 2024-06-25 06:27 | RAD REPORT ---
EXAM DESCRIPTION: Abdomen Pelvis Wo Contrast RadLex: CTABDOMEN PELVIS WITHOUT IV CONTRAST CLINICAL HISTORY: 39 years Male; FLANK PAIN; NO CONTRAST Bed Name: 14 TECHNIQUE: CT of the abdomen and pelvis without contrast. All CT scans at this facility use dose modulation, iterative reconstruction, and/or weight based dosi ng when appropriate to reduce radiation dose to as low as reasonably achievable. COMPARISON: CT abdomen pelvis 06/18/2024. FINDINGS: Lower thorax: Lung bases are clear Abdomen: Stomach:Within normal limits Liver:No focal lesions. No intrahepatic ductal distention. Gallbladder:Nondistended Pancreas:Within normal limits Spleen:Within normal limits Right kidney:No hydronephrosis. 8 mm renal stone. Left kidney:Moderate hydronephrosis. There are 2 stones in the distal ureter measuring 5 mm and 7 mm. Adrenal glands:Within normal limits Vascular structures:Within normal limits (although limited evaluation on noncontrast exam). Lymph nodes:No lymphadenopathy by size criteria Pelvis: Small bowel:No significant distention. Appendix:Surgically absent. Colon:No distention or acute pericolonic edema. Peritoneum: No free intraperitoneal fluid or air. Bones: No acute bone findings. Bladder: Unremarkable. Reproductive organs: No acute findings. Soft tissues: Small fat-containing umbilical hernia. Note that evaluation of the bowel and solid organs is somewhat limited due to lack of intravenous and oral contrast. IMPRESSION: 1. Moderate left-sided hydronephrosis with 2 stones in the distal left ureter measuring 5 mm and 7 mm . 2. Right-sided nephrolithiasis. Electronically signed by: Skip Juárez MD 06/25/2024 06:19 AM [facility] Due to temporary technical issues with the PACS/BigCalc reporting system, reports are being yang d by the in-house radiologist without review as a courtesy to ensure prompt reporting the interpreting radiologist is fully responsible for the content of the report. Transcribed Date/Time: 06/25/2024 6:27 AM
--- NOTE | 2024-06-25 06:38 | EDPHYS ---
Physician Documentation [facility] Name: Cipriano Sparks Age: 39 yrs Sex: Male : 1985 Arrival Date: 06/25/2024 Time: 04:30 Bed 14 Private MD: ED Physician Román Artis HPI: 06/25 04:59 This 39 yrs old Male presents to ER via Unassigned with complaints of ec2 Possible Kidney Stone, Flank Pain, Nausea/Vomiting. 04:59 Patient arrives today for evaluation of left flank pain. Complaining of left flank ec2 pain, recent diagnosis of kidney stone. Reports associated nausea. No vomiting or diarrhea. No urinary complaints.. Historical: - Allergies: 05:44 No Known Allergies; br2 - Immunization history:: Adult Immunizations up to date. - Infectious Disease History:: Denies. - Social history:: Smoking status: Patient/guardian denies using tobacco. ROS: 05:00 Constitutional: as per hpi ec2 Exam: 05:00 Constitutional: GEN: NAD Head: atraumatic Eyes: EOMI Ears: External ears are ec2 normal. CV: regular rate LUNGS: no respiratory distress ABD: non-distended, soft, tender left lower quadrant, not guarding or rigid SKIN: no evidence of rashes MSK: no evidence of trauma Vital Signs: 05:00 BP 133 / 82; Pulse 74; Resp 17; Pulse Ox 99% on R/A; dd2 05:41 BP 129 / 94; Pulse 71; Resp 18; Temp 98.4; Pulse Ox 100% ; Weight 95.25 kg; Height 5 br2 ft. 11 in. ; Pain 10/10; 06:30 BP 128 / 85; Pulse 84; Resp 16; Pulse Ox 97% on R/A; dd2 05:41 Body Mass Index 29.29 (95.25 kg, 180.34 cm) br2 05:41 Pain Scale: Adult br2 Liberal Coma Score: 05:00 Eye Response: spontaneous(4). Motor Response: obeys commands(6). Verbal Response: dd2 oriented(5). Total: 15. MDM: 04:40 Medical Screening Exam initiated ec2 05:00 Data reviewed: vital signs, nurses notes. ED course: Patient arrives today for ec2 evaluation of abdominal pain. Examination yields abdominal findings as above. Will obtain lab work, CT imaging and urine studies. Differential includes ureteral stone, diverticulitis, gastritis.. 06:25 ED course: CT abdomen pelvis shows ureteral stones x 2 measured at 5 and 7 mm.. ec2 06:36 ED course: On reassessment patient with marked improvement in symptoms. Will discharge ec2 home have patient follow-up with urology as scheduled. Return precautions given.. 06/25 04:45 Order name: CBC with Diff ec2 06/25 04:45 Order name: CMP; Complete Time: 06:25 ec2 06/25 04:45 Order name: Lipase; Complete Time: 06:25 ec2 06/25 05:01 Order name: UAM; Complete Time: 06:25 ec2 06/25 05:26 Order name: Manual Differential EDMS 06/25 05:53 Order name: Urine Drug Screen; Complete Time: 06:25 kmf 06/25 04:45 Order name: CT Abd/Pelvis - Without Contrast ec2 06/25 04:45 Order name: IV Saline Lock; Complete Time: 05:02 ec2 06/25 04:45 Order name: Labs collected and sent; Complete Time: 05:02 ec2 Administered Medications: 05:15 Drug: morphine IVP or IV 4 mg IVP once over 4 mins Route: IVP; Infused Over: 4 mins; dd2 Site: right antecubital; 05:30 Follow up: Response: No adverse reaction dd2 05:15 Drug: Ondansetron IVP 4 mg IVP once; over 2 minutes Route: IVP; Site: right antecubital;dd2 05:30 Follow up: Response: No adverse reaction dd2 05:15 Drug: Ketorolac IVP 15 mg IVP once Route: IVP; Site: right antecubital; dd2 05:30 Follow up: Response: No adverse reaction dd2 06:24 Drug: fentaNYL (PF) IVP 100 mcg IVP once Route: IVP; Site: right antecubital; dd2 06:39 Follow up: Response: No adverse reaction dd2 Disposition Summary: 06/25/24 06:37 Discharge Ordered Notes: Location: Home ec2 Condition: Stable ec2 Diagnosis - Calculus of ureter ec2 Followup: ec2 - With: Private Physician - When: - Reason: Re-evaluation by your physician Discharge Instructions: - Discharge Summary Sheet ec2 - Kidney Stones, [id number] ec2 Forms: - Medication Reconciliation Form ec2 - Antibiotic Education ec2 - Prescription Opioid Use ec2 - Patient Portal Instructions ec2 - Leadership Thank You Letter ec2 Prescriptions: - acetaminophen-codeine 300-30 mg Oral tablet - take 1 tablet ORAL route every 4 hours as needed for pain; 15 tablet; Refills: ec2 0, Product Selection Permitted Signatures: Dispatcher [employer] EDMS Román Artis MD MD ec2 Diandra De Jesus RN RN br2 ELBERT TORRES RN RN dd2 Corrections: (The following items were deleted from the chart) 05:53 05:53 URINE DRUG SCREEN+.LAB.BRZ ordered. EDMS EDMS
--- NOTE | 2024-06-25 06:38 | ER ---
Nurse's Notes [facility] Name: Cipriano Sparks Age: 39 yrs Sex: Male : 1985 Arrival Date: 06/25/2024 Time: 04:30 Bed 14 Private MD: Diagnosis: Calculus of ureter Presentation: 06/25 05:41 Chief complaint: Patient states: LLQ PAIN AND LEFT LOWER BACK. Coronavirus screen: br2 Client denies travel out of the [place] in the last 14 days. Ebola Screen: Patient denies exposure to infectious person. Initial Sepsis Screen: Does the patient meet any 2 criteria? No. Patient's initial sepsis screen is negative. Does the patient have a suspected source of infection? No. Patient's initial sepsis screen is negative. Risk Assessment: Do you want to hurt yourself or someone else? Patient reports no desire to harm self or others. Onset of symptoms is unknown. 05:41 Method Of Arrival: EMS: [facility] br2 05:41 Acuity: ANABELLE 3 br2 Triage Assessment: 05:44 General: Appears in no apparent distress. General: Behavior is calm, cooperative. Pain: br2 Complains of pain in left lower quadrant Pain radiates to left low back. GI: Abdomen is round Pt is actively vomiting Reports lower abdominal pain, nausea. Historical: - Allergies: 05:44 No Known Allergies; br2 - Immunization history:: Adult Immunizations up to date. - Infectious Disease History:: Denies. - Social history:: Smoking status: Patient/guardian denies using tobacco. Screenin:00 [facility] ED Fall Risk Assessment (Adult) History of falling in the last 3 months, dd2 including since admission No falls in past 3 months (0 pts) Confusion or Disorientation No (0 pts) Intoxicated or Sedated No (0 pts) Impaired Gait No (0 pts) Mobility Assist Device Used No (0 pt) Altered Elimination No (0 pt) Score/Fall Risk Level 0 - 2 = Low Risk Oriented to surroundings, Maintained a safe environment, Educated pt \T\ family on fall prevention, incl call for assistance when getting out of bed, Assessed \T\ reinforced patient's understanding of fall precautions, Hourly rounding (assess needs \T\ fall precautionary measures) done. Abuse screen: Denies threats or abuse. Nutritional screening: No deficits noted. Tuberculosis screening: No symptoms or risk factors identified. Assessment: 05:00 General: Appears in no apparent distress. uncomfortable, Behavior is cooperative, dd2 appropriate for age, anxious. Pain: Complains of pain in left low back and left lower quadrant Pain does not radiate. Pain currently is 10 out of 10 on a pain scale. Neuro: [place] Agitation-Sedation Scale (RASS): +1 Restless Level of Consciousness is awake, alert, obeys commands, Oriented to person, place, time, situation, Appropriate for age. Cardiovascular: No deficits noted. Patient's skin is warm and dry. Respiratory: Airway is patent Respiratory effort is even, unlabored, Respiratory pattern is regular, symmetrical, Breath sounds are clear bilaterally. GI: Abdomen is non-distended, Bowel sounds present X 4 quads. Abdomen is tender to palpation in left low back and left lower quadrant. : Reports inability to void, pain in left flank(s), lower quadrant(s). EENT: No deficits noted. No signs and/or symptoms were reported regarding the EENT system. Derm: No deficits noted. No signs and/or symptoms reported regarding the dermatologic system. Musculoskeletal: Circulation, motion, and sensation intact. Range of motion: intact in all extremities. 06:40 Reassessment: Patient is alert, oriented x 3, equal unlabored respirations, skin dd2 warm/dry/pink. Patient states feeling better. Patient states symptoms have improved. Vital Signs: 05:00 BP 133 / 82; Pulse 74; Resp 17; Pulse Ox 99% on R/A; dd2 05:41 BP 129 / 94; Pulse 71; Resp 18; Temp 98.4; Pulse Ox 100% ; Weight 95.25 kg; Height 5 br2 ft. 11 in. ; Pain 10/10; 06:30 BP 128 / 85; Pulse 84; Resp 16; Pulse Ox 97% on R/A; dd2 05:41 Body Mass Index 29.29 (95.25 kg, 180.34 cm) br2 05:41 Pain Scale: Adult br2 [place] Coma Score: 05:00 Eye Response: spontaneous(4). Motor Response: obeys commands(6). Verbal Response: dd2 oriented(5). Total: 15. ED Course: 04:33 Patient arrived in ED. gm2 04:40 Román Artis MD is Attending Physician. ec2 04:50 ELBERT TORRES RN is Primary Nurse. dd2 04:58 CT Abd/Pelvis - Without Contrast In Process Unspecified. EDMS 05:00 No provider procedures requiring assistance completed. Inserted saline lock: 20 gauge dd2 in right antecubital area, using aseptic technique. Blood collected. Flushed with 10 mL NS. Patient maintains SpO2 saturation greater than 95% on room air. 05:00 Patient has correct armband on for positive identification. Bed in low position. Call dd2 light in reach. Side rails up X 1. Client placed on continuous cardiac and pulse oximetry monitoring. NIBP monitoring applied. Door closed. Noise minimized. Warm blanket given. Pillow given. Verbal reassurance given. 05:02 CBC with Diff Sent. dd2 05:02 CMP Sent. dd2 05:02 Lipase Sent. dd2 05:44 Triage completed. br2 05:44 Arm band placed on right wrist. br2 06:52 IV discontinued, intact, bleeding controlled, No redness/swelling at site. Pressure dd2 dressing applied. 06:53 Provided Education on: D/C EDUCATION. dd2 Administered Medications: 05:15 Drug: morphine IVP or IV 4 mg IVP once over 4 mins Route: IVP; Infused Over: 4 mins; dd2 Site: right antecubital; 05:30 Follow up: Response: No adverse reaction dd2 05:15 Drug: Ondansetron IVP 4 mg IVP once; over 2 minutes Route: IVP; Site: right antecubital;dd2 05:30 Follow up: Response: No adverse reaction dd2 05:15 Drug: Ketorolac IVP 15 mg IVP once Route: IVP; Site: right antecubital; dd2 05:30 Follow up: Response: No adverse reaction dd2 06:24 Drug: fentaNYL (PF) IVP 100 mcg IVP once Route: IVP; Site: right antecubital; dd2 06:39 Follow up: Response: No adverse reaction dd2 Medication: 05:00 VIS not applicable for this client. dd2 Outcome: 06:37 Discharge ordered by . ec2 06:52 Discharged to home ambulatory, dd2 06:52 Condition: stable 06:52 Discharge instructions given to patient, Instructed on discharge instructions, follow up and referral plans. medication usage, Demonstrated understanding of instructions, follow-up care, medications, Prescriptions given X 06:53 Patient left the ED. dd2 Signatures: Dispatcher [employer] EDRomán Phillips MD MD ec2 Ramila Mishra gm2 Diandra De Jesus RN RN br2 ELBERT TORRES RN RN dd2
[2024-06-25 07:49] LABS: Differential Total Cells Count 100; Lymphocytes 8 % (15-42); Monocytes 6 % (0-10); Platelet Estimate ADEQ; Segmented Neutrophils 85 % (40-80)
[2024-06-25 07:50] LABS: Blood Morphology Comment NOT SEEN (NOT SEEN)
[2024-06-25 08:52] VITALS: TEMP 98.4
[2024-06-25 08:53] VITALS: BP 128/85; O2SAT 97
== END 2024-06-25 06:53 | disposition home or self-care (01) ==
LOC: ER 04:30
DX: N20.1 Calculus of ureter (principal)
CPT/HCPCS: 85025; 81001; 36415; 83690; 80053; 80307; 74176; J3010; J2405